=== PATIENT | female | born 1990 | race Two or more races ===

== ENCOUNTER 2019-01-01 15:45 | Emergency (ER) | payer SELFPAY ==
[2019-01-01 16:17] VITALS: BP 121/71; PULSE 103; RESP 18; TEMP 98.5; O2SAT 96
[2019-01-01 17:02] LABS: BASO # 0.01 K/mm3 (0.0-2.0); BASO % 0.2 % (0.0-3.0); HEMOGLOBIN 14.4 g/dL (12.0-16.0); LYMPH # 0.7 (1.2-3.4); LYMPH % 11.6 % (22.0-35.0); MEAN CELL VOLUME 88.6 fl (80.0-105.0); MEAN CORPUSCULAR HEMOGLOBIN 29.8 pg (25.0-35.0); MEAN CORPUSCULAR HGB CONC 33.6 g/dl (31.0-37.0); MEAN PLATELET VOLUME 9.3 fl (7.0-11.0); MONO # 0.3 (0.1-0.6); MONO % 4.8 % (1.0-6.0); RBC 4.84 10^6/uL (3.5-6.1); RED CELL DISTRIBUTION WIDTH 13.1 % (11.5-14.5); URINE BILIRUBIN NEGATIVE (NEGATIVE); URINE BLOOD NEGATIVE (NEGATIVE); URINE COLOR YELLOW (YELLOW); URINE GLUCOSE (UA) NEGATIVE (NEGATIVE); URINE LEUKOCYTE ESTERASE NEGATIVE Leu/uL (NEGATIVE); URINE PROTEIN NEGATIVE mg/dL (<30 mg/dL); URINE UROBILINOGEN >=8.0 E.U./dL (<1 E.U./dL); WHITE BLOOD COUNT 6.2 10^3/uL (4.5-11.0)
[2019-01-01 17:03] LABS: URINE APPEARANCE CLEAR (CLEAR)
--- NOTE | 2019-01-01 17:07 | ED PDOC ---
Arrival/HPI - General Historian: Patient, Partner (Fiance) - History of Present Illness Narrative History of Present Illness (Text): 01/01/19 18:07 28 year old F with no significant PMH presents to the Emergency department after EtOH binge last night and seizure this afternoon for less than 1 min, per fiance. 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 Patient endorses using Xanax for withdrawal. Patient denies any fevers, chills, headache, dizziness, chest pain, shortness of breath, dyspnea on exertion, cough, abdominal pain, nausea, vomiting, diarrhea, back pain, or any other complaint. Time/Duration: < week Symptom Onset: Gradual Symptom Course: Unchanged Activities at Onset: Light Context: Home <Zeynep Hays PA-C - Last Filed: 01/01/19 22:00> <Charity Tang - Last Filed: 01/02/19 10:48> - General Chief Complaint: Substance Abuse Time Seen by Provider: 01/01/19 16:14 Past Medical History - Provider Review Nursing Documentation Reviewed: Yes <Zeynep Hays PA-C - Last Filed: 01/01/19 22:00> - Cardiac Hx Cardiac Disorders: No - Neurological Hx Neurological Disorder: Yes Hx Seizures: Yes - Gastrointestinal Hx Irritable Bowel: Yes Other/Comment: gastropharesis - Psychiatric Hx Substance Use: Yes <Charity Tang - Last Filed: 01/02/19 10:48> Family/Social History - Physician Review Nursing Documentation Reviewed: Yes Family/Social History: No Known Family HX <Zeynep Hays PA-C - Last Filed: 01/01/19 22:00> Smoking Status: Heavy Smoker > 10 Cigarettes Daily Hx Alcohol Use: Yes Frequency of alcohol use: Daily Hx Substance Use: Yes Substance used: heroin <Charity Tang - Last Filed: 01/02/19 10:48> Allergies/Home Meds <Zeynep Hays PA-C - Last Filed: 01/01/19 22:00> <Charity Tang - Last Filed: 01/02/19 10:48> Allergies/Adverse Reactions: Allergies latex Allergy (Verified 01/01/19 16:05) RASH metoclopramide [From Reglan] Allergy (Verified 01/01/19 17:02) RASH seizure meds Allergy (Uncoded 01/01/19 17:02) RASH Home Medications: Home Meds Medication Instructions Recorded Confirmed No Known Home Med 01/01/19 01/01/19 Review of Systems - Physician Review All systems were reviewed & negative as marked: Yes - Review of Systems Respiratory: absent: SOB, Cough, Wheezing Cardiovascular: absent: Chest Pain Gastrointestinal: absent: Abdominal Pain, Diarrhea, Nausea, Vomiting Musculoskeletal: absent: Arthralgias, Back Pain, Neck Pain Neurological: absent: Headache <Zeynep Hays PA-C - Last Filed: 01/01/19 22:00> Physical Exam Vital Signs Reviewed: Yes Vital Signs Temp Pulse Resp BP Pulse Ox 01/01/19 16:05 98.5 F 103 H 18 121/71 96 Temperature: Afebrile Blood Pressure: Normal Pulse: Tachycardic Respiratory Rate: Normal Mental Status: Positive for: Alert and Oriented X 3 - Systems Exam Head: Present: Normocephalic, Tenderness (Mild tenderness to L. parietal scalp), Abrasion (Mild abrasion L. parietal scalp) Pupils: Present: PERRL Extroacular Muscles: Present: EOMI Conjunctiva: Present: Normal Ears: Present: Normal Mouth: Present: Moist Mucous Membranes Neck: Present: Normal Range of Motion. No: Meningeal Signs, MIDLINE TENDERNESS, Paraspinal Tenderness, Lymphadenopathy Respiratory/Chest: Present: Clear to Auscultation, Good Air Exchange. No: Respiratory Distress Cardiovascular: Present: Regular Rate and Rhythm, Normal S1, S2. No: Murmurs Abdomen: Present: Normal Bowel Sounds. No: Tenderness, Distention, Peritoneal Signs Back: Present: Normal Inspection. No: Midline Tenderness Upper Extremity: Present: Normal Inspection, Normal ROM. No: Edema Lower Extremity: Present: Normal Inspection, Normal ROM. No: Edema Neurological: Present: GCS=15, CN II-XII Intact, Speech Normal, Motor Func Grossly Intact, Normal Sensory Function Skin: Present: Warm, Dry, Normal Color. No: Rashes Psychiatric: Present: Alert, Oriented x 3 <Zeynep Hays PA-C - Last Filed: 01/01/19 22:00> Vital Signs Temp Pulse Resp BP Pulse Ox 01/01/19 16:05 98.5 F 103 H 18 121/71 96 <Charity Tang - Last Filed: 01/02/19 10:48> Medical Decision Making ED Course and Treatment: 01/01/19 16:18 Impression: 28 year old F presents to the Emergency department after EtOH binge last night and seizure this afternoon for less than 1 min, per fiance. Differential Diagnosis included but are not limited to: Plan: --EKG --Labs --Alcohol/UDS --Head CT w/o Contrast --Reassess and disposition Prior Visits: Notes and results from previous visits were reviewed. Progress Notes: 01/01/19 16:42 EKG reviewed as: --NSR @84bpm --Normal [place] --Normal Intervals --NO ST Elevations --No T wave inversions 01/01/19 17:10 Patient eloped prior to CT, labs were drawn. Per Nurse, patient was AA&0x3 w/ steady gait, no tremors. - Lab Interpretations Lab Results: Total Bilirubin 0.6 mg/dL (0.2-1.3) 01/01/19 16:40 AST 78 U/L (14-36) H 01/01/19 16:40 ALT 39 U/L (7-56) 01/01/19 16:40 Alkaline Phosphatase 55 U/L (38-126) 01/01/19 16:40 Total Protein 6.9 g/dL (5.8-8.3) 01/01/19 16:40 Albumin 3.8 g/dL (3.0-4.8) 01/01/19 16:40 Globulin 3.1 gm/dL 01/01/19 16:40 Albumin/Globulin Ratio 1.2 (1.1-1.8) 01/01/19 16:40 Amylase 101 U/L (35-125) 01/01/19 16:40 Lipase 73 U/L (23-300) 01/01/19 16:40 Urine Color Yellow (YELLOW) 01/01/19 16:40 Urine Appearance Clear (CLEAR) 01/01/19 16:40 Urine pH 7.0 (4.7-8.0) 01/01/19 16:40 Ur Specific [place] 1.020 (1.005-1.035) 01/01/19 16:40 Urine Protein Negative mg/dL (<30 mg/dL) 01/01/19 16:40 Urine Glucose (UA) Negative mg/dL (NEGATIVE) 01/01/19 16:40 Urine Ketones Trace mg/dL (NEGATIVE) H 01/01/19 16:40 Urine Blood Negative (NEGATIVE) 01/01/19 16:40 Urine Nitrate Negative (NEGATIVE) 01/01/19 16:40 Urine Bilirubin Negative (NEGATIVE) 01/01/19 16:40 Urine Urobilinogen >=8.0 E.U./dL (<1 E.U./dL) 01/01/19 16:40 Ur Leukocyte Esterase Negative [place]/uL (NEGATIVE) 01/01/19 16:40 - RAD Interpretation Radiology Orders: 01/01/19 16:19 HEAD W/O CONTRAST [CT] Stat <Zeynep Hays PA-C - Last Filed: 01/01/19 22:00> - Lab Interpretations Lab Results: Urine Color Yellow (YELLOW) 01/01/19 16:40 Urine Appearance Clear (CLEAR) 01/01/19 16:40 Urine pH 7.0 (4.7-8.0) 01/01/19 16:40 Ur Specific [place] 1.020 (1.005-1.035) 01/01/19 16:40 Urine Protein Negative mg/dL (<30 mg/dL) 01/01/19 16:40 Urine Glucose (UA) Negative mg/dL (NEGATIVE) 01/01/19 16:40 Urine Ketones Trace mg/dL (NEGATIVE) H 01/01/19 16:40 Urine Blood Negative (NEGATIVE) 01/01/19 16:40 Urine Nitrate Negative (NEGATIVE) 01/01/19 16:40 Urine Bilirubin Negative (NEGATIVE) 01/01/19 16:40 Urine Urobilinogen >=8.0 E.U./dL (<1 E.U./dL) 01/01/19 16:40 Ur Leukocyte Esterase Negative [place]/uL (NEGATIVE) 01/01/19 16:40 <Charity Tang - Last Filed: 01/02/19 10:48> - PA / PRODUCTION GRIP / Resident Statement / has reviewed & agrees with the documentation as recorded. - Scribe Statement The provider has reviewed the documentation as recorded by the Catrina Lopez All medical record entries made by the Alliibshannon were at my direction and personally dictated by me. I have reviewed the chart and agree that the record accurately reflects my personal performance of the history, physical exam, medical decision making, and the department course for this patient. I have also personally directed, reviewed, and agree with the discharge instructions and disposition. <Zeynep Hays PA-C - Last Filed: 01/01/19 22:00> - PA / PRODUCTION GRIP / Resident Statement / has reviewed & agrees with the documentation as recorded. <Charity Tang - Last Filed: 01/02/19 10:48> Disposition/Present on Arrival - Present on Arrival Any Indicators Present on Arrival: No History of DVT/PE: No History of Uncontrolled Diabetes: No Urinary Catheter: No History of Decub. Ulcer: No - Disposition Have Diagnosis and Disposition been Completed?: No Disposition Time: 17:10 Patient Plan: Other (patient eloped) <Zeynep Hays PA-C - Last Filed: 01/01/19 22:00> - Present on Arrival History of DVT/PE: No History of Uncontrolled Diabetes: No Urinary Catheter: No History of Decub. Ulcer: No History Surgical Site Infection Following: None <Charity Tang - Last Filed: 01/02/19 10:48> - Disposition Diagnosis: Alcohol withdrawal, Heroin use, Head injury Disposition: ELOPEMENT - ER ONLY Condition: UNKNOWN Forms: [employer] ([place])
[2019-01-01 17:13] LABS: ALB/GLOB RATIO 1.2 (1.1-1.8); ALBUMIN 3.8 g/dL (3.0-4.8); ALT/SGPT 39 U/L (7-56); AMYLASE 101 U/L (35-125); AST/SGOT 78 U/L (14-36); BLOOD UREA NITROGEN 23 mg/dL (7-21); CALCIUM 9.1 mg/dL (8.4-10.5); GFR NON-AFRICAN AMERICAN > 60; LIPASE 73 U/L (23-300)
[2019-01-01 17:22] LABS: PHENCYCLIDINE, UR NEGATIVE (NEGATIVE)
[2019-01-01 17:24] LABS: BARBITURATES, UR NEGATIVE (NEGATIVE); BENZODIAZEPINES, UR POSITIVE (NEGATIVE); OPIATES, UR POSITIVE (NEGATIVE)
--- NOTE | 2019-01-01 17:55 | CARD ---
APPROVED REPORT Date of service: 01/01/2019 EKG Measurement Heart [id number] <Conclusion> Normal sinus rhythm Normal ECG
== END 2019-01-01 17:14 | disposition left against medical advice (07) ==
LOC: ED 15:45
DX: F10.239 Alcohol dependence with withdrawal, unspecified (principal); F11.90 Opioid use, unspecified, uncomplicated; S09.90XA Unspecified injury of head, initial encounter; X58.XXXA Exposure to other specified factors, initial encounter; F17.210 Nicotine dependence, cigarettes, uncomplicated
CPT/HCPCS: 80053; 81003; 81025; 82150; 83690; 83735; 84100; 85025; 93005; 99283; G0480